=== PATIENT | female | born 2000 | race Caucasian/White ===

== ENCOUNTER 2019-05-18 22:49 | Emergency (ER) | payer BC ==
[2019-05-19] MEDS ORDERED: NA CHLORIDE 0.9% 1,000 ML ONE (00:01)
[2019-05-19 00:25] LABS: Absolute Lymphocytes (CBC) 2.2 K/uL (0.7-4.9); Basophils % 0.3 % (0-1.3); Hematocrit 39.4 % (36.0-45.0); Lymphocytes % 24.7 % (15.3-44.8); MPV 8.8 fL (7.6-11.3); RBC Red Blood Cell Count 4.52 M/uL (3.86-4.86)
[2019-05-19 00:36] LABS: Albumin 3.8 g/dL (3.4-5.0); Bilirubin Total 0.5 mg/dL (0.2-1.0); Potassium 3.6 mmol/L (3.5-5.1); Protein, Total 7.1 g/dL (6.4-8.2)
--- NOTE | 2019-05-19 01:03 | ER ---
Nurse's Notes [facility] Name: Zohreh Anderson Age: 18 yrs Sex: Female : 2000 Arrival Date: 05/18/2019 Time: 22:50 Bed 15 Private MD: Diagnosis: Laceration without foreign body of vagina and vulva Presentation: 05/18 23:14 Presenting complaint: Patient states: she was having intercourse tonight and on bb insertion she felt pain and started bleeding she is still having vaginal bleeding with clots and is feeling dizzy. Transition of care: patient was not received from another setting of care. Onset of symptoms was May 18, 2019. Risk Assessment: Do you want to hurt yourself or someone else? Patient reports no desire to harm self or others. Initial Sepsis Screen: Does the patient meet any 2 criteria? No. Patient's initial sepsis screen is negative. Does the patient have a suspected source of infection? No. Patient's initial sepsis screen is negative. Care prior to arrival: None. 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 - Social history:: Smoking status: Patient/guardian denies using tobacco. - Ebola Screening: : No symptoms or risks identified at this time. - Family history:: not pertinent. Screenin/05 00:00 Abuse screen: Denies threats or abuse. Denies injuries from another. Nutritional rr5 screening: No deficits noted. Tuberculosis screening: No symptoms or risk factors identified. Fall Risk IV access (20 points). Total Parada Fall Scale indicates No Risk (0-24 pts). Assessment: 05/18 23:15 General: Appears in no apparent distress. comfortable, Behavior is calm, cooperative, rr5 appropriate for age. 23:15 Pain: Denies pain. Neuro: Level of Consciousness is awake, alert, obeys commands, rr5 Oriented to person, place, time, situation, Appropriate for age. Cardiovascular: Capillary refill < 3 seconds Patient's skin is warm and dry. Respiratory: Airway is patent Respiratory effort is even, unlabored, Respiratory pattern is regular, symmetrical. GI: No signs and/or symptoms were reported involving the gastrointestinal system. : Urine is blood tinged, Reports vaginal bleeding that is bright red. EENT: No signs and/or symptoms were reported regarding the EENT system. Derm: Skin is intact, Skin temperature is warm. Musculoskeletal: Circulation, motion, and sensation intact. Capillary refill < 3 seconds. 05/19 00:15 Reassessment: Patient appears in no apparent distress at this time. Patient is alert, rr5 oriented x 3, equal unlabored respirations, skin warm/dry/pink. no complaints made chatting with her outreach coordinator at bedside. 01:37 Reassessment: patient refused for zofran and norco medication. she said she feel fine. rr5 01:58 Reassessment: Patient appears in no apparent distress at this time. Patient is alert, rr5 oriented x 3, equal unlabored respirations, skin warm/dry/pink. discharge instruction given and explained without complaints made. Patient denies pain at this time. Patient states feeling better. Patient states symptoms have improved. Vital Signs: 05/18 23:17 BP 129 / 73; Pulse 93; Resp 16 S; Temp 99.4(O); Pulse Ox 100% on R/A; Weight 72.57 kg bb (R); Height 5 ft. 10 in. (177.80 cm) (R); Pain 0/10; 05/19 00:55 BP 125 / 69 Supine; Pulse 82; Resp 17 S; Pulse Ox 100% on R/A; cc3 00:56 BP 112 / 70 Sitting; Pulse 92; Resp 17 S; Pulse Ox 100% on R/A; cc3 00:58 BP 126 / 66 Standing; Pulse 84; Resp 16 S; Pulse Ox 99% on R/A; cc3 02:00 BP 131 / 73; Pulse 79; Resp 17; Temp 99; Pulse Ox 100% ; Pain 0/10; rr5 05/18 23:17 Body Mass Index 22.96 (72.57 kg, 177.80 cm) ED Course: 05/18 22:50 Patient arrived in ED. es 23:09 José Antonio Morales MD is Attending Physician. libia 23:15 Triage completed. bb 23:17 Arm band placed on Patient placed in an exam room, on a stretcher, on pulse oximetry. bb Family accompanied patient. 23:20 Jack Cast, RN is Primary Nurse. rr5 23:20 Patient has correct armband on for positive identification. Placed in gown. Bed in low rr5 position. Call light in reach. Side rails up X2. 23:55 Inserted saline lock: 20 gauge in right antecubital area, using aseptic technique. cc3 Blood collected. 05/19 01:00 Hellen Benavides MD is Referral Physician. libia 01:05 Assist provider with pelvic exam: Set up pelvic tray. Performed by José Antonio Morales MD rr5 Patient tolerated well. 02:01 IV discontinued, intact, bleeding controlled, No redness/swelling at site. Pressure rr5 dressing applied. Administered Medications: 00:10 Drug: NS 0.9% 1000 ml Route: IV; Rate: 1 bolus; Site: right antecubital; rr5 01:55 Follow up: Response: No adverse reaction; IV Status: Completed infusion; IV Intake: rr5 1000ml 01:15 Drug: KeFLEX 500 mg Route: PO; rr5 01:55 Follow up: Response: No adverse reaction rr5 01:38 Not Given (Patient Refused): [place] 10 mg-325 mg 1 tabs PO once rr5 01:38 Not Given (Patient Refused): Zofran 4 mg PO once rr5 Intake: 01:55 IV: 1000ml; Total: 1000ml. rr5 Outcome: 01:01 Discharge ordered by . libia 02:01 Discharged to home ambulatory, with friend. rr5 02:01 Condition: stable 02:01 Discharge instructions given to patient, Instructed on discharge instructions, follow up and referral plans. medication usage, Demonstrated understanding of instructions, follow-up care, medications, Prescriptions given X 2. 02:02 Patient left the ED. rr5 Signatures: José Antonio Morales MD MD cha Salyer, Edna es Ballard, Brenda, RN RN Alena Salinas cc3 Jack Cast, RN RN rr5
--- NOTE | 2019-05-19 01:04 | EDPHYS ---
Physician Documentation [facility] Name: Zohreh Anderson Age: 18 yrs Sex: Female : 2000 Arrival Date: 05/18/2019 Time: 22:50 Bed 15 Private MD: ED Physician José Antonio Morales HPI: 05/18 23:48 This 18 yrs old Female presents to ER via Ambulatory with complaints of libia Vaginal Bleeding, Dizziness. 23:48 The patient presents with vaginal bleeding that is moderate. Onset: The libia symptoms/episode began/occurred just prior to arrival. Modifying factors: The symptoms are alleviated by nothing, the symptoms are aggravated by nothing. Associated signs and symptoms: Pertinent positives: vaginal bleeding. Severity of symptoms: At their worst the symptoms were moderate, in the emergency department the symptoms have improved, moderately. The patient is sexually active, reportedly has a single partner. The patient has not experienced similar symptoms in the past. 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 - Social history:: Smoking status: Patient/guardian denies using tobacco. - Ebola Screening: : No symptoms or risks identified at this time. - Family history:: not pertinent. ROS: 23:48 Constitutional: Negative for fever, chills, and weight loss, Eyes: Negative for injury, libia pain, redness, and discharge, ENT: Negative for injury, pain, and discharge, Neck: Negative for injury, pain, and swelling, Cardiovascular: Negative for chest pain, palpitations, and edema, Respiratory: Negative for shortness of breath, cough, wheezing, and pleuritic chest pain, Abdomen/GI: Negative for abdominal pain, nausea, vomiting, diarrhea, and constipation, Back: Negative for injury and pain, MS/Extremity: Negative for injury and deformity, Skin: Negative for injury, rash, and discoloration, Neuro: Negative for headache, weakness, numbness, tingling, and seizure, Psych: Negative for depression, anxiety, suicide ideation, homicidal ideation, and hallucinations, Allergy/Immunology: Negative for hives, rash, and allergies, Endocrine: Negative for neck swelling, polydipsia, polyuria, polyphagia, and marked weight changes, Hematologic/Lymphatic: Negative for swollen nodes, abnormal bleeding, and unusual bruising. 23:48 : Positive for vaginal bleeding. Exam: 23:48 Constitutional: This is a well developed, well nourished patient who is awake, alert, libia and in no acute distress. Head/Face: Normocephalic, atraumatic. Eyes: Pupils equal round and reactive to light, extra-ocular motions intact. Lids and lashes normal. Conjunctiva and sclera are non-icteric and not injected. Cornea within normal limits. Periorbital areas with no swelling, redness, or edema. ENT: Nares patent. No nasal discharge, no septal abnormalities noted. Tympanic membranes are normal and external auditory canals are clear. Oropharynx with no redness, swelling, or masses, exudates, or evidence of obstruction, uvula midline. Mucous membranes moist. Neck: Trachea midline, no thyromegaly or masses palpated, and no cervical lymphadenopathy. Supple, full range of motion without nuchal rigidity, or vertebral point tenderness. No Meningismus. Chest/axilla: Normal chest wall appearance and motion. Nontender with no deformity. No lesions are appreciated. Cardiovascular: Regular rate and rhythm with a normal S1 and S2. No gallops, murmurs, or rubs. Normal PMI, no JVD. No pulse deficits. Respiratory: Lungs have equal breath sounds bilaterally, clear to auscultation and percussion. No rales, rhonchi or wheezes noted. No increased work of breathing, no retractions or nasal flaring. Abdomen/GI: Soft, non-tender, with normal bowel sounds. No distension or tympany. No guarding or rebound. No evidence of tenderness throughout. Back: No spinal tenderness. No costovertebral tenderness. Full range of motion. Skin: Warm, dry with normal turgor. Normal color with no rashes, no lesions, and no evidence of cellulitis. MS/ Extremity: Pulses equal, no cyanosis. Neurovascular intact. Full, normal range of motion. Neuro: Awake and alert, GCS 15, oriented to person, place, time, and situation. Cranial nerves II-XII grossly intact. Motor strength 5/5 in all extremities. Sensory grossly intact. Cerebellar exam normal. Normal gait. Psych: Awake, alert, with orientation to person, place and time. Behavior, mood, and affect are within normal limits. 05/19 00:57 : Pelvic Exam: External exam: is normal, Speculum exam: mild bleeding, 3 o clock, libia vaginal mucosal tear. Vital Signs: 05/18 23:17 BP 129 / 73; Pulse 93; Resp 16 S; Temp 99.4(O); Pulse Ox 100% on R/A; Weight 72.57 kg bb (R); Height 5 ft. 10 in. (177.80 cm) (R); Pain 0/10; 05/19 00:55 BP 125 / 69 Supine; Pulse 82; Resp 17 S; Pulse Ox 100% on R/A; cc3 00:56 BP 112 / 70 Sitting; Pulse 92; Resp 17 S; Pulse Ox 100% on R/A; cc3 00:58 BP 126 / 66 Standing; Pulse 84; Resp 16 S; Pulse Ox 99% on R/A; cc3 02:00 BP 131 / 73; Pulse 79; Resp 17; Temp 99; Pulse Ox 100% ; Pain 0/10; rr5 05/18 23:17 Body Mass Index 22.96 (72.57 kg, 177.80 cm) bb MDM: 05/18 23:09 Patient medically screened. [facility] 23:50 Data reviewed: vital signs, nurses notes, lab test result(s). [facility] 05/18 23:26 Order name: CBC with Diff; Complete Time: 00:56 [facility] 05/18 23:26 Order name: Comprehensive Metabolic Panel; Complete Time: 00:56 [facility] 05/18 23:26 Order name: Test, Serum; Complete Time: 00:56 [facility] 05/18 23:10 Order name: Urine Dipstick-Ancillary (obtain specimen); Complete Time: 23:58 [facility] 05/18 23:10 Order name: Urine Test (obtain specimen); Complete Time: 23:58 [facility] 05/18 23:48 Order name: Pelvic Exam Setup; Complete Time: 01:01 [facility] 05/18 23:48 Order name: Orthostatics; Complete Time: 01:01 [facility] Administered Medications: 05/19 00:10 Drug: NS 0.9% 1000 ml Route: IV; Rate: 1 bolus; Site: right antecubital; rr5 01:55 Follow up: Response: No adverse reaction; IV Status: Completed infusion; IV Intake: rr5 1000ml 01:15 Drug: KeFLEX 500 mg Route: PO; rr5 01:55 Follow up: Response: No adverse reaction rr5 01:38 Not Given (Patient Refused): [place] 10 mg-325 mg 1 tabs PO once rr5 01:38 Not Given (Patient Refused): Zofran 4 mg PO once rr5 Disposition: 05/19/19 01:01 Discharged to Home. Impression: Laceration without foreign body of vagina and vulva. - Condition is Stable. - Discharge Instructions: How to Take a Sitz Bath, Vaginal Laceration, Pelvic Rest. - Prescriptions for Keflex 500 mg Oral Capsule - take 1 capsule by ORAL route every 6 hours for 10 days; 28 capsule. Tylenol- Codeine #3 300-30 mg Oral Tablet - take 2 tablets by ORAL route every 6 hours As needed; 20 tablet. - Medication Reconciliation Form, Thank You Letter, Antibiotic Education, Prescription Opioid Use form. - Follow up: Hellen Benavides MD; When: 2 - 3 days; Reason: Recheck today's complaints, Re-evaluation by your physician. - Problem is new. - Symptoms have improved. Signatures: Dispatcher [employer] EDMS José Antonio Morales MD MD cha Ballard, Brenda RN RN Jack Sosa RN RN rr5 Corrections: (The following items were deleted from the chart) 02:02 01:01 05/19/2019 01:01 Discharged to Home. Impression: Laceration without foreign body rr5 of vagina and vulva. Condition is Stable. Forms are Medication Reconciliation Form, Thank You Letter, Antibiotic Education, Prescription Opioid Use. Follow up: Hellen Benavides; When: 2 - 3 days; Reason: Recheck today's complaints, Re-evaluation by your physician. Problem is new. Symptoms have improved. libia
[2019-05-19] MEDS ORDERED: ONDANSETRON 4 MG (ODT) TAB ONE (01:23)
[2019-05-19] MEDS ORDERED: HYDROCODONE/APAP 10/325 TAB ONE (01:23)
[2019-05-19] MEDS ORDERED: CEPHALEXIN 250 MG CAP ONE (01:23)
== END 2019-05-19 02:02 | disposition home or self-care (01) ==
LOC: ER 22:49
DX: S31.41XA Laceration without foreign body of vagina and vulva, initial encounter (principal)
CPT/HCPCS: 96361; 85025; 36415; 84703; 80053; 96360; 99284; J7030